=== PATIENT | female | born 1945 | race Caucasian/White ===

== ENCOUNTER 2016-10-19 08:14 | Observation (INO) | payer MEDICARE, BC ==
[~2016-10-19 08:14] MED LIST: Bacitracin IV* 50,000 UNITS INJ ONE; Famotidine IV* 10 MG/ML 2 ML (20 mg) IV ONE; Lidocaine 1% MPF wEPI 200,000* 30 ML SDV ONE; Thrombin 5,000 UNITS* 1 APPLIC KIT - topical use - TOPICAL ONE
[2016-10-19] MEDS ORDERED: Famotidine IV* 10 MG/ML 2 ML (20 mg) ONE (08:24)
[2016-10-19] MEDS ORDERED: ceFAZolin 2 GM PREMIX(*) 2 GM/50 ML BAG IVPB ONE (08:24)
[2016-10-19] MEDS ORDERED: Buffered Lidocaine 0.9% SYRIN* 5 ML/SYR SYRINGE ONE (08:24)
[2016-10-19] MEDS ORDERED: Insulin LISPRO* 1 UNITS UNIT SUBCUT ONE (09:12)
[2016-10-19] MEDS ORDERED: fentaNYL* 50 MCG/ML 2 ML VIAL (100 MCG VIAL) ONE ×3 (09:48→11:49)
[2016-10-19] MEDS ORDERED: Lidocaine 2% PF * 5 ML VIAL ONE (09:49)
[2016-10-19] MEDS ORDERED: Propofol* 10 MG/ML 20 ML BTL IV PUSH ONE (09:49)
[2016-10-19] MEDS ORDERED: Ondansetron INJ* 2 MG/ML VIAL ONE (10:18)
[2016-10-19] MEDS ORDERED: PROCHLORPERAZINE INJ 5 MG/ML 2 ML VIAL IV PRN (10:25)
[2016-10-19] MEDS ORDERED: HYDROcodone/ACETAMIN 5-325 MG* 1 TAB PO PRN (10:25)
[2016-10-19] MEDS ORDERED: EPHEDrine (Pressors)* 50 MG/ML VIAL ONE (10:26)
[2016-10-19] MEDS ORDERED: Acetaminophen TAB* 325 MG PO PRN (11:06)
[2016-10-19] MEDS ORDERED: Ondansetron INJ* 2 MG/ML VIAL IV PRN (11:06)
[2016-10-19] MEDS: fentaNYL* 50 MCG/ML 2 ML VIAL (100 MCG VIAL) IV PRN ×4 (11:33→11:57)
[2016-10-19] MEDS ORDERED: oxyCODONE/Acetamin 5/325 MG* TAB ONE (11:53)
[2016-10-19] MEDS: oxyCODONE/Acetamin 5/325 MG* TAB PO PRN ×3 (11:56→18:43)
[2016-10-19] MEDS: traMADol TAB* 50 MG PO SCH ×3 (14:31→21:58)
[2016-10-19] MEDS: Pregabalin CAP(*) 50 MG PO SCH ×2 (14:31→21:26)
[2016-10-19] MEDS: Insulin LISPRO* 1 UNITS UNIT SUBCUT SCH ×2 (14:44→18:01)
--- NOTE | 2016-10-19 14:46 | RAD ---
INDICATION: L4-L5 left discectomy COMPARISON: Lumbar spine November 02, 2014. TECHNIQUE: A single crosstable lateral image of the lumbar spine taken at 1015 hours is submitted FINDINGS: There are retractors and hemostats at the L5 spinous process level. Degenerative disc disease is present at L4-L5 with a grade 1 anterolisthesis.
[2016-10-19] MEDS ORDERED: Insulin LISPRO* 1 UNITS UNIT SUBCUT SCH (16:30)
[2016-10-19] MEDS ORDERED: Liraglutide (NF) 18 MG/3 ML SUBCUT SCH (18:00)
[2016-10-19] MEDS ORDERED: Atorvastatin* 10 MG TAB PO SCH (21:00)
[2016-10-19] MEDS: Insulin GLARGINE(*) 1 UNITS UNIT SUBCUT SCH (21:27)
[2016-10-20] MEDS: oxyCODONE/Acetamin 5/325 MG* TAB PO PRN (00:40)
[2016-10-20] MEDS: traMADol TAB* 50 MG PO SCH ×3 (02:13→10:06)
--- NOTE | 2016-10-20 07:46 | PN ---
Progress Note - Progress Note SOAP: Subjective: [This is a 71 year old female s/p lumbar discectomy L4-5 left, POD #1. Pre- operative left leg pain persists although is slightly improved. She is ambulating independently. She is eating, drinking and voiding without difficulty. She denies numbness and pain in the right leg. No headache. ] Objective: [ Vital Signs: Temp Pulse Resp BP Pulse Ox 99.0 F 72 16 110/49 97 10/20/16 03:32 10/20/16 03:32 10/20/16 06:02 10/20/16 03:32 10/20/16 04:06 General: Alert and oriented. No distress. Neuro: Motor and sensory intact. Extremities: Full ROM Incision: Intact with guillermo. No infection. ] Assessment: [Satisfactory post-op course. ] Plan: [1. Discharge home today. 2. Discharge instructions discussed with the patient. ]
[2016-10-20 07:55] VITALS: BP 122/58
--- NOTE | 2016-10-20 08:26 | PN ---
Progress Note - Progress Note Note: Endocrine brief consultation for diabetes mellitus management Primary care patient with T2D. She has tolerated the surgery. She is back on her usual insulin regimen. She is eating and drinking, but in some pain on movement. I suggest she returns to her usual insulin regimen when she goes home. If she is on analgesics, she needs to be careful to eat and drink as normally as possible, or to adjust her insulin to her carbohydrate intake. I discussed this with the patient
[2016-10-20] MEDS ORDERED: Lisinopril/HCTZ 10/12.5(NF) TAB PO SCH (09:00)
[2016-10-20] MEDS ORDERED: Lisinopril TAB* 10 MG PO SCH (09:00)
[2016-10-20] MEDS ORDERED: Cholecalciferol TAB* 1000 UNITS PO SCH (09:00)
[2016-10-20] MEDS ORDERED: Ascorbic Acid TAB* 500 MG PO SCH (09:00)
[2016-10-20] MEDS ORDERED: Hydrochlorothiazide TAB* 25 MG PO SCH (09:00)
[2016-10-20] MEDS ORDERED: oxyCODONE/Acetamin 5/325 MG* TAB ONE (09:12)
[2016-10-20] MEDS ORDERED: oxyCODONE/Acetamin 5/325 MG* TAB PO PRN (09:13)
[2016-10-20] MEDS: Pregabalin CAP(*) 50 MG PO SCH (10:06)
[2016-10-20] MEDS: Insulin LISPRO* 1 UNITS UNIT SUBCUT SCH (10:07)
[2016-10-20] MEDS: Insulin GLARGINE(*) 1 UNITS UNIT SUBCUT SCH (10:09)
--- NOTE | 2016-10-23 00:45 | DS ---
DISCHARGE SUMMARY: DATE OF ADMISSION: 10/19/16 DATE OF DISCHARGE: 10/20/16 DISCHARGE DIAGNOSES: 1. Herniated nucleus pulposus, L4-5, on the left. 2. Diabetes mellitus. 3. Sleep apnea. SPECIAL PROCEDURES: Lumbar diskectomy at L4-5 on the left. HOSPITAL COURSE: This 71-year-old female was seen in the office with a significant left-sided lumbar radiculopathy. She failed to improve after several months of conservative treatments and was then admitted at this time for elective surgical therapy. On the day of admission, she was taken to surgery, where under general anesthesia, a lumbar diskectomy at L4-5 on the left operation was carried out. Postoperatively, the pain was improved. She is ambulating with assistance. She is eating, drinking, and voiding without difficulty. On the first postoperative day, she was discharged home to the care of her family. DISCHARGE INSTRUCTIONS: Including wound care and activity level were discussed with the patient and provided. She will be seen in office in approximately 7 to 10 days for followup and staple removal. DISCHARGE MEDICATIONS: Percocet 5/325 mg 1 tab by mouth every 4 hours as needed for pain. SHARRI DE LA CRUZ [id number]/[facility] #: [id number] ANNABELLE
--- NOTE | 2016-11-07 14:44 | OP ---
DATE OF OPERATION: 10/19/16 - ROOM #340 DATE OF : 47 SURGEON: Fidel Martínez MD. BACK JOINER: SHARRI Rangel. ANESTHESIOLOGIST: Luisa Jim MD ANESTHESIA: General. PRE-OP DIAGNOSIS: Herniated nucleus pulposus, L4-L5 on the left. POST-OP DIAGNOSIS: Herniated nucleus pulposus, L4-L5 on the left. OPERATIVE PROCEDURE: Lumbar diskectomy at L4-L5 on the left with microdissection. DESCRIPTION OF PROCEDURE: After satisfactory general anesthesia was obtained, the patient was placed on the operating room table in a prone position with the chest supported on the [place] frame and the back slightly flexed. The lumbar region was then clipped, prepped, and draped in a sterile manner for lumbar laminectomy and a skin incision outlined from the L4-L5. This incision was infiltrated with 1% Xylocaine with epinephrine after which it was turned down sharply to the level of the lumbar fascia. The fascia was divided along the spinous processes of L4 and L5 and the paraspinal musculature was stripped away from these posterior elements using the periosteal elevator and monopolar cautery. A preoperative imaging has suggested the presence of a superiorly migrated fragment at this level. The inferior aspect of the L4 lamina and medial aspect of the facet complex was thinned out and removed with a Kerrison rongeur. This was carried superiorly until the attachment of the ligamentum flavum was taken down. At this point in the procedure, the operating microscope was brought into the field and the remainder of the procedure was done under microscopic visualization. Dissection was carried superiorly and utilizing microdissection, epidural venous structures were coagulated and divided. Projecting superior to the disk space, compressing the L4 nerve root, was noted to be freely extruded disk material. Multiple fragments of disk material were removed from this area, which was essentially over the L4 vertebral body. The disk space itself was noted to be somewhat collapsed and was not entered. At the conclusion of the decompression, both the L4 and L5 nerve roots on the left side were free. After assuring adequate hemostasis the wound was thoroughly irrigated after which a piece of Gelfoam was placed over the laminectomy defect. The fascia was then reapproximated with 0 Vicryl suture. The subcutaneous tissues were closed with 3-0 Vicryl suture and the skin closed with skin clips. The estimated blood loss was less than 50 cc. The final sponge, padding, and needle counts were correct. The patient was taken to the recovery room extubated and in stable condition. [id number]/[facility] #: [id number] MTDClarence
== END 2016-10-20 11:05 | disposition home or self-care (01) ==
LOC: OR 08:14 → SSU 13:38
PROVIDERS: ADMIT Neurological Surgery; ATTEND Neurological Surgery
PROC: 01NB0ZZ Release Lumbar Nerve, Open Approach (ICD-10-PCS; 2016-10-19)
PROC: 0SB20ZZ Excision of Lumbar Vertebral Disc, Open Approach (ICD-10-PCS; principal; 2016-10-19 09:45)
DX: M51.16 Intervertebral disc disorders with radiculopathy, lumbar region (principal); E11.9 Type 2 diabetes mellitus without complications; G47.30 Sleep apnea, unspecified; Z88.8 Allergy status to other drugs, medicaments and biological substances
CPT/HCPCS: 72100; 88304; A9270-GY; G0378; J0690; J2001; J2405; J2704; J3010